=== PATIENT | female | born 1960 | race Caucasian/White ===

== ENCOUNTER → 2016-10-14 | Outpatient (CLI) | payer MEDICAID | LOC: BRMIMAGING 09:45 | PROVIDERS: ATTEND Internal Medicine | DX: N64.53 Retraction of nipple (principal) | CPT/HCPCS: 76641-PO; G0206 ==

== ENCOUNTER → 2017-01-27 | Outpatient (CLI) | payer MEDICAID | LOC: BRMIMAGING 13:30 | PROVIDERS: ATTEND Internal Medicine | DX: Z12.31 Encounter for screening mammogram for malignant neoplasm of breast (principal); Z80.3 Family history of malignant neoplasm of breast | CPT/HCPCS: G0202 ==

== ENCOUNTER → 2018-01-28 | Outpatient (CLI) | payer MEDICAID | LOC: BRMIMAGING 14:31 | PROVIDERS: ATTEND Internal Medicine | DX: Z12.31 Encounter for screening mammogram for malignant neoplasm of breast (principal); Z80.3 Family history of malignant neoplasm of breast ==

== ENCOUNTER → 2018-02-28 | Outpatient (CLI) | payer MEDICAID | LOC: BRMIMAGING 11:15 | PROVIDERS: ATTEND Internal Medicine | DX: M25.871 Other specified joint disorders, right ankle and foot (principal) | CPT/HCPCS: 73660-PO ==